=== PATIENT | female | born 1970 | race Caucasian/White ===

== ENCOUNTER 2021-09-26 12:33 | Emergency (ER) | payer OTHER, SELFPAY ==
[2021-09-26 12:45] VITALS: BP 109/73; PULSE 78; RESP 16; TEMP 36.2; O2SAT 100
--- NOTE | 2021-09-26 12:57 | ED.GENADULT ---
HPI - General Adult General Chief complaint: Allergic Reaction Stated complaint: possible allergic reaction Time Seen by Provider: 09/26/21 12:57 Source: patient Mode of arrival: ambulatory Limitations: no limitations History of Present Illness HPI narrative: 50-year-old female presented for complaint of right ear pain, redness, and swelling since yesterday. Endorses itching and burning sensation, tender to touch. She states she did receive a Prevnar vaccination 2 days prior, otherwise no changes. Endorses several allergies to medication, and states this is similar to her Benadryl allergy. She denies sinus congestion, pressure, sore throat, ear drainage, fevers or chills. She has not taken anything for symptoms. Related Data Home Medications Medication Instructions Recorded Confirmed Tirosint-Nanci 0.5 mg PO DAILY 09/26/21 09/26/21 fluticasone propionate [Flonase] 2 spray INTRANASAL DAILY 09/26/21 09/26/21 Allergies Allergy/AdvReac Type Severity Reaction Status Date / Time cromolyn [From Nasalcrom] Allergy Unknown Verified 09/26/21 13:15 dextromethorphan Allergy Unknown Verified 09/26/21 13:15 dimenhydrinate Allergy Unknown Verified 09/26/21 13:15 [From Dramamine] diphenhydramine Allergy Unknown Verified 09/26/21 13:12 [From Benadryl] erythromycin base Allergy Unknown Verified 09/26/21 13:15 fluticasone [From Aller-Ranjit] Allergy Unknown Verified 09/26/21 13:15 gluten Allergy Unknown Verified 09/26/21 13:15 guaifenesin [From Mucinex] Allergy Unknown Verified 09/26/21 13:15 iohexol Allergy Unknown Verified 09/26/21 13:15 [From contrast - CT, X-RAY] ondansetron [From Zofran] Allergy Unknown Verified 09/26/21 13:15 Penicillins Allergy Unknown Verified 09/26/21 13:15 Review of Systems Review of Systems: CONSTITUTIONAL: Denies body aches, fever, chills, or sweats. EYES: Denies visual changes, redness, or discharge. ENT: Denies rhinorrhea, congestion, sore throat; reports ear pain CARDIOVASCULAR: Denies chest pain, palpitations, or edema. RESPIRATORY: Denies cough or dyspnea. GASTROINTESTINAL: Denies abdominal pain, nausea, vomiting, or diarrhea. GENITOURINARY: Denies dysuria or hematuria. SKIN: ear redness and swelling MUSCULOSKELETAL: Denies back pain, joint pain, or myalgia. NEUROLOGIC: Denies headache, numbness, tingling, or weakness. PSYCH: Denies depression or anxiety. PMFSH Comments At time of signature, I have reviewed and agree with nursing past medical, surgical, social and family history unless otherwise noted. Please see nursing chart for further information. There is no relevant family history pertinent to the presenting complaint Exam Narrative: GENERAL: Well-appearing HEAD: Normocephalic, atraumatic. EYES: conjunctivae clear, and EOMI. ENT: Mucous membranes moist. Right ear with auricular erythema, moderate swelling, and tenderness with palpation. No fluctuance. Scant amount of yellow crusted drainage to the posterior helix. Oropharynx without edema, erythema or lesions. NECK: Supple. No lymphadenopathy CHEST: Clear to auscultation. No respiratory distress. HEART: Regular rate and rhythm. SKIN: Warm, dry. NEURO: Alert and oriented x3. PSYCH: Normal mood and affect Course Course Emergency Course: Patient is aware of diagnosis, understands and agrees to treatment plan. Anticipatory guidance given. Patient agrees to follow-up as directed and is aware of reasons to seek care at the emergency department. Portions of this record may have been created with voice recognition software Level of Care: Express Care Visit Vital Signs Vital signs: Vital Signs Temperature 97.2 F L 09/26/21 12:45 Pulse Rate 78 09/26/21 12:45 Respiratory Rate 16 09/26/21 12:45 Blood Pressure 109/73 09/26/21 12:45 Pulse Oximetry 100 09/26/21 12:45 Temperature 97.2 F L 09/26/21 12:45 Pulse Rate 78 09/26/21 12:45 Respiratory Rate 16 09/26/21 12:45 Blood Pressure 109/73
== END 2021-09-26 13:25 | disposition home or self-care (01) ==
PROVIDERS: Emergency Provider Nurse Practitioner Family
DX: H61.001 Unspecified perichondritis of right external ear (principal); E03.9 Hypothyroidism, unspecified; E06.3 Autoimmune thyroiditis
CPT/HCPCS: 99213; G0463

== ENCOUNTER 2022-10-27 10:23 | Outpatient (CLI) | payer OTHER, SELFPAY ==
--- NOTE | 2022-10-27 | EST_ITS ---
Patient Info Name: Erika Rivera Age: 52 years : 1970 Gender: Female Ht: 66 in Wt: 154 lbs BSA: 1.81 m2 HR: 68 bpm BP: 119 / 78 mmHg Heart Rhythm: Sinus Rhythm Exam Date: 10/27/2022 10:58 AM Exam Location: [facility] Stress Patient Status: Outpatient Admit Date: 10/27/2022 Staff Ordering Physician: JoseNery MD Attending Provider: JoseNery MD Exercise Technologist: Megan Ferris CT Exercise Physician: Jaden Berrios DO Exam Type: CA stress test treadmill Study Info Indications Z82.49 - FM HX CARDIOVASCULAR DISEASE A treadmill exercise stress test was performed. Summary 1. 1. Negative Sushant exercise stress test for ischemic ST changes by ECG criteria. 2. 2. Reduced functional capacity, achieving 7 METs of workload. 3. 3. Rapid HR response to exercise. 4. 4. Appropriate HR recovery at 1 minute post exercise. 5. 5. No imaging with stress testing. 6. 6. Patient informed of the above results. Protocol: Sushant Stress ECG Details Stage: REST Duration (min): 1 min : 2 sec Speed (mph): 0.0 Grade (%): 0 HR (bpm): 72 SBP (mmHg): 119 DBP (mmHg): 78 METS: --- Stage: REST Duration (min): 6 min : 12 sec Speed (mph): 0.0 Grade (%): 0 HR (bpm): 68 SBP (mmHg): 119 DBP (mmHg): 78 METS: --- Stage: STAGE 1 Duration (min): 1 min : 0 sec Speed (mph): 1.7 Grade (%): 10 HR (bpm): 126 SBP (mmHg): 119 DBP (mmHg): 78 METS: --- Stage: STAGE 1 Duration (min): 2 min : 0 sec Speed (mph): 1.7 Grade (%): 10 HR (bpm): 139 SBP (mmHg): 119 DBP (mmHg): 78 METS: --- Stage: STAGE 1 Duration (min): 3 min : 0 sec Speed (mph): 1.7 Grade (%): 10 HR (bpm): 147 SBP (mmHg): 186 DBP (mmHg): 74 METS: --- Stage: STAGE 2 Duration (min): 1 min : 0 sec Speed (mph): 2.5 Grade (%): 12 HR (bpm): 153 SBP (mmHg): 186 DBP (mmHg): 74 METS: --- Stage: STAGE 2 Duration (min): 2 min : 0 sec Speed (mph): 2.5 Grade (%): 12 HR (bpm): 160 SBP (mmHg): 181 DBP (mmHg): 72 METS: --- Stage: STAGE 2 Duration (min): 2 min : 0 sec Speed (mph): 2.5 Grade (%): 12 HR (bpm): 161 SBP (mmHg): 181 DBP (mmHg): 72 METS: --- Stage: RECOVERY Duration (min): 0 min : 59 sec Speed (mph): 0.0 Grade (%): 0 HR (bpm): 127 SBP (mmHg): 181 DBP (mmHg): 72 METS: --- Stage: RECOVERY Duration (min): 1 min : 59 sec Speed (mph): 0.0 Grade (%): 0 HR (bpm): 101 SBP (mmHg): 181 DBP (mmHg): 72 METS: --- Stage: RECOVERY Duration (min): 2 min : 59 sec Speed (mph): 0.0 Grade (%): 0 HR (bpm): 85 SBP (mmHg): 200 DBP (mmHg): 69 METS: --- Stage: RECOVERY Duration (min): 3 min : 15 sec Speed (mph): 0.0 Grade (%): 0 HR (bpm): 87 SBP (mmHg): 200 DBP (mmHg): 69 METS: --- Rest HR: 68 bpm Peak HR: 160 bpm Rest Sys BP: 119 mmHg Peak Sys BP: 200 mmHg Max Pred HR: 167 bpm % Max Pred HR: 96 % Target HR: 142 bpm Max RPP:
== END 2022-10-27 10:24 | disposition home or self-care (01) ==
PROVIDERS: Visit Provider Internal Medicine Endocrinology, Diabetes & Metabolism
DX: Z13.6 Encounter for screening for cardiovascular disorders (principal); Z82.49 Family history of ischemic heart disease and other diseases of the circulatory system
CPT/HCPCS: 93017

== ENCOUNTER 2025-04-25 18:23 | Emergency (ER) | payer OTHER, SELFPAY ==
--- NOTE | 2025-04-25 18:28 | ED.GIBLEED ---
HPI - GI Bleed General Stated complaint: Allergic Reaction Source: patient Mode of arrival: ambulatory Limitations: no limitations History of Present Illness HPI Narrative: Pt is a 54 y/o female presenting with c/o suspected allergic reaction. Pt states she began taking a new supplement (Vital Step) 4 days ago. Reports diarrhea, fever 2 days ago--swelling to extremities yesterday, and pruritic rash today. Reports extensive allergy hx. 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 No additional complaints. Related Data Home Medications ?Medication ?Instructions ?Recorded ?Confirmed ?Last Taken ?Type Tirosint-Nanci 0.5 mg PO DAILY 09/26/21 09/26/21 Unknown History fluticasone propionate 50 2 spray intranasal DAILY 09/26/21 09/26/21 Unknown History mcg/actuation nasal spray,suspension Allergies Allergy/AdvReac Type Severity Reaction Status Date / Time clarithromycin Allergy Mild EXCESS WT Verified 04/25/25 18:45 LOSS FROM DIARRHEA cromolyn (From Nasalcrom) Allergy Unknown Verified 04/25/25 18:45 dextromethorphan Allergy Unknown Verified 04/25/25 18:45 dimenhydrinate (From Allergy Unknown Verified 04/25/25 18:45 Dramamine) diphenhydramine (From Allergy Unknown Verified 04/25/25 18:45 Benadryl) erythromycin base Allergy Unknown Verified 04/25/25 18:45 fluticasone (From Aller-Ranjit) Allergy Unknown Verified 04/25/25 18:45 gluten Allergy Unknown Verified 04/25/25 18:45 guaifenesin (From Mucinex) Allergy Unknown Verified 04/25/25 18:45 iohexol (From contrast - CT, Allergy Unknown Verified 04/25/25 18:45 X-RAY) ondansetron (From Zofran) Allergy Unknown Verified 04/25/25 18:45 Penicillins Allergy Unknown Verified 04/25/25 18:45 Sulfa (Sulfonamide AdvReac Mild DOES NOT Verified 04/25/25 18:45 Antibiotics) WORK ag1 antihist Allergy Unknown Unknown Uncoded 04/25/25 18:45 airborne Allergy Unknown Unknown Uncoded 04/25/25 18:45 Review of Systems Review of Systems: CONSTITUTIONAL: Denies body aches, fever, chills, or sweats. EYES: Denies visual changes, redness, or discharge. ENT: Denies rhinorrhea, congestion, sore throat, or otalgia. CARDIOVASCULAR: Denies chest pain, palpitations, or edema. RESPIRATORY: Denies cough or dyspnea. GASTROINTESTINAL: Denies abdominal pain, nausea, vomiting, or diarrhea. GENITOURINARY: Denies dysuria or hematuria. SKIN: reports rash, itching MUSCULOSKELETAL: Denies back pain, joint pain, or myalgia. NEUROLOGIC: Denies headache, numbness, tingling, or weakness. PSYCH: Denies depression or anxiety. All systems reviewed & are unremarkable except as noted in HPI and below Exam Narrative: GENERAL: Well-appearing, well-nourished, and in no acute distress. HEAD: Normocephalic, atraumatic. EYES: EOMI. No redness or drainage. Conjunctivae normal. ENT: Mucous membranes pink and moist. Nares clear. No rhinorrhea. TMs normal bilaterally. Throat normal. Uvula midline. Tongue is midline without edema. NECK: Normal AROM. Supple. No lymphadenopathy. CHEST: No respiratory distress. Clear to auscultation. HEART: Regular rate and rhythm. No murmur appreciated. Normal peripheral pulses. ABDOMEN: Soft, nontender, nondistended, normal active bowel sounds. MUSCULOSKELETAL: No bony tenderness. EXTREMITIES: Normal range of motion. No edema. SKIN: Warm, dry, no rash. Capillary refill normal. Normal skin turgor. NEURO: No focal deficits. Alert and oriented x3. Gait steady. PSYCH: Normal affect. No signs of depression or anxiety. Course Course Level of Care: Express Care Visit MDM MDM Narrative Medical decision making narrative: feeling better upon d/c, less itchy, rash improving. Airway remains patient, LCTA in all kelsey. Differential Diagnosis Differential Diagnosis: dermatitis, anaphylaxis, allergic reaction Discharge Plan Discharge Clinical Impression: Allergic reaction Patient Disposition: Home Condition: Stable Instructions: Antibiotic Form Additional Instructions: Begin using zyrtec and pepcid per the package instructions Go straight to ER should your symptoms become worse or should any new symptoms develop Patient Language: Telugu Prescriptions: New prednisone 20 mg tablet 40 mg PO DAILY 5 Days Qty: 10 0RF No Action fluticasone propionate [Flonase] 50 mcg/actuation [place],Suspension 2 spray INTRANASAL DAILY Tirosint-Nanci 0.5 mg PO DAILY ciprofloxacin HCl 750 mg tablet 750 mg PO Q12H 7 Days Qty: 14 0RF methylprednisolone [Medrol (Kush)] 4 mg tablets,dose pack See Rx Instructions .ROUTE .COMPLEX Qty: 21 0RF Rx Instructions: orally per package directions Follow-up/Referrals: Dane Florian MD [Primary Care Provider, Internal Medicine] - 04/26/25 Time of Disposition: 19:32
[2025-04-25 18:30] VITALS: BP 128/90; PULSE 98; RESP 18; TEMP 36.8; O2SAT 100
== END 2025-04-25 19:44 | disposition home or self-care (01) ==
PROVIDERS: Emergency Provider Registered Nurse; PCP Internal Medicine
CPT/HCPCS: 96372; 99213; G0463; J2919